=== PATIENT | female | born 1940 | race Caucasian/White ===

== ENCOUNTER 2016-08-11 14:01 | Emergency (ER) | payer OTHER ==
[~2016-08-11] VITALS: Ht 147.3 cm; Wt 54.5 kg
[~2016-08-11 14:01] MED LIST: ACET325T47 PO; ALBU8HFA IH; ASPI-1061 PO; CALC1TAB90 PO; CARV3 PO; CLOP75TA32 PO; DOCU100C98 PO; OMEP20 PO; SIMV-261 PO; VITAD5000 PO
[2016-08-11 15:32] LABS: BASOPHILS % (AUTO) 0.7 % (0.0-2.0); EOSINOPHILS % (AUTO) 2.8 % (1.0-6.0); HEMATOCRIT 31.8 % (36-46); HEMOGLOBIN 10.7 g/dL (12.0-16.0); LYMPHOCYTES # (AUTO) 1.7 K/uL (1.0-4.8); LYMPHOCYTES % (AUTO) 27.1 % (22.0-44.0); MEAN CORPUSCULAR HEMOGLOBIN 32.8 pg (26.0-34.0); MEAN CORPUSCULAR HGB CONC 33.7 G/dL (31.0-37.0); MEAN CORPUSCULAR VOLUME 97 fL (80-100); MONOCYTES # (AUTO) 0.6 K/uL (0.1-1.0); MONOCYTES % (AUTO) 9.1 % (2.0-9.0); NEUTROPHILS # (AUTO) 3.8 K/uL (1.8-7.7); NEUTROPHILS % (AUTO) 60.3 % (40.0-70.0); PLATELET COUNT (AUTO) 184 K/uL (150-450); RED BLOOD CELL COUNT(AUTO) 3.27 MIL/uL (4.00-5.20); RED CELL DISTRIBUTION WIDTH 14.3 % (11.5-14.5); WHITE BLOOD COUNT (AUTO) 6.3 K/uL (4.5-11.0)
[2016-08-11 15:45] LABS: ANION GAP 6 mmol/L (8-16); CALCIUM, TOTAL 8.9 mg/dL (8.8-10.5); CARBON DIOXIDE 27 mmol/L (22-29); CHLORIDE 104 mmol/L (98-107); GLOMERULAR FILTR. RATE CALC > 60 mL/min (>60); POTASSIUM 3.9 mmol/L (3.5-5.1); SODIUM SERUM 137 mmol/L (136-145); UREA NITROGEN, BLOOD 18 mg/dL (7-18)
[2016-08-11 15:48] LABS: ALANINE AMINOTRANSFERASE 43 U/L (12-78); ALBUMIN 3.3 g/dL (3.4-5.0); ASPARTATE AMINOTRANSFERASE 32 U/L (15-37); BILIRUBIN,TOTAL 0.4 mg/dL (0.1-1.0); TOTAL PROTEIN, SERUM 7.6 g/dL (6.4-8.2)
[2016-08-11 16:25] VITALS: BP 105/66
== END 2016-08-11 17:28 | disposition home or self-care (01) ==
LOC: EMS 14:02
DX: J40 Bronchitis, not specified as acute or chronic (principal); I11.0 Hypertensive heart disease with heart failure; I50.9 Heart failure, unspecified; E78.00 Pure hypercholesterolemia, unspecified; I25.10 Atherosclerotic heart disease of native coronary artery without angina pectoris; Z79.84 Long term (current) use of oral hypoglycemic drugs
CPT/HCPCS: 93005; 99285

== ENCOUNTER 2016-12-04 08:46 | Inpatient (IN) | payer OTHER ==
[~2016-12-04] VITALS: Ht 147.3 cm; Wt 54.3 kg
[2016-12-04] MEDS ORDERED: ATOR40TA28 PO (08:57)
[2016-12-04] MEDS ORDERED: GABA-529 PO (08:57)
[2016-12-04] MEDS ORDERED: FURO40 PO (08:57)
[2016-12-04] MEDS ORDERED: FERR-89 PO (08:57)
[2016-12-04] MEDS ORDERED: MULT1TAB59 PO (08:57)
[2016-12-04 09:48] LABS: BASOPHILS % (AUTO) 0.8 % (0.0-2.0); EOSINOPHILS % (AUTO) 2.9 % (1.0-6.0); HEMATOCRIT 36.4 % (36-46); HEMOGLOBIN 11.7 g/dL (12.0-16.0); LYMPHOCYTES # (AUTO) 1.4 K/uL (1.0-4.8); LYMPHOCYTES % (AUTO) 26.2 % (22.0-44.0); MEAN CORPUSCULAR HEMOGLOBIN 30.9 pg (26.0-34.0); MEAN CORPUSCULAR HGB CONC 32.1 G/dL (31.0-37.0); MEAN CORPUSCULAR VOLUME 96 fL (80-100); MONOCYTES # (AUTO) 0.4 K/uL (0.1-1.0); MONOCYTES % (AUTO) 7.6 % (2.0-9.0); NEUTROPHILS # (AUTO) 3.4 K/uL (1.8-7.7); NEUTROPHILS % (AUTO) 62.5 % (40.0-70.0); PLATELET COUNT (AUTO) 159 K/uL (150-450); RED BLOOD CELL COUNT(AUTO) 3.78 MIL/uL (4.00-5.20); RED CELL DISTRIBUTION WIDTH 16.4 % (11.5-14.5); WHITE BLOOD COUNT (AUTO) 5.5 K/uL (4.5-11.0)
[2016-12-04 09:57] LABS: ANION GAP 11 mmol/L (8-16); CALCIUM, TOTAL 8.6 mg/dL (8.8-10.5); CARBON DIOXIDE 24 mmol/L (22-29); CHLORIDE 103 mmol/L (98-107); GLOMERULAR FILTR. RATE CALC > 60 mL/min (>60); INR 1.1 (0.9-1.1); POTASSIUM 3.2 mmol/L (3.5-5.1); PROTHROMBIN TIME 11.3 SEC (9.4-11.6); SODIUM SERUM 138 mmol/L (136-145); UREA NITROGEN, BLOOD 12 mg/dL (7-18)
[2016-12-04 10:02] LABS: APPEARANCE,URINE CLEAR (CLEAR); GLUCOSE, URINE (UA) NEGATIVE (NEGATIVE); KETONES,URINE NEGATIVE (NEGATIVE); LEUKOCYTE ESTERASE ,URINE SMALL (NEGATIVE); OCCULT BLOOD,URINE NEGATIVE (NEGATIVE); PROTEIN,URINE NEGATIVE (NEGATIVE)
[2016-12-04 10:06] LABS: B-TYPE NATRIURETIC PEPTIDE 2030 pg/mL (0-100)
[2016-12-04 10:15] LABS: ADD UA MICROSCOPIC YES; RBC,URINE 0-2 /HPF (0-2); SQUAMOUS EPITHELIAL CELL,UR Few /LPF (None Seen)
[2016-12-04 10:38] LABS: ALANINE AMINOTRANSFERASE 47 U/L (12-78); ALBUMIN 3.3 g/dL (3.4-5.0); ASPARTATE AMINOTRANSFERASE 27 U/L (15-37); BILIRUBIN,TOTAL 0.8 mg/dL (0.1-1.0); CREATINE KINASE MB 1.2 ng/mL (0-5); CREATINE KINASE, TOTAL 110 U/L (26-192); TOTAL PROTEIN, SERUM 7.3 g/dL (6.4-8.2)
[2016-12-04] MEDS ORDERED: NITROGLYCERIN 2% (1 GM=INCH) PACKET TP ONE (12:00)
[2016-12-04] MEDS: FUROSEMIDE 40 MG/4 ML VIAL IVP ONE ×2 (12:01→12:31)
[2016-12-04] MEDS ORDERED: MAGNESIUM HYDROXIDE SUSPENSION 30 ML UDCUP PO PRN (12:45)
[2016-12-04] MEDS ORDERED: ALBUTEROL SULFATE 2.5 MG/0.5 ML NEB SOLUTION NEB PRN (12:45)
[2016-12-04] MEDS ORDERED: BISACODYL 10 MG RECTAL RECTAL SUPPOSITORY PR PRN (12:45)
[2016-12-04] MEDS ORDERED: ACETAMINOPHEN 325 MG TABLET PO PRN (12:45)
[2016-12-04] MEDS: ASPIRIN 81 MG CHEWABLE TABLET PO SCH (12:52)
[2016-12-04] MEDS ORDERED: POTASSIUM CHL 10 MEQ/WATER 50 ML IV PRN (13:00)
[2016-12-04] MEDS: CLOPIDOGREL BISULFATE 75 MG TABLET PO SCH (13:42)
[2016-12-04 15:37] VITALS: BP 104/74
[2016-12-04] MEDS: POTASSIUM CHLORIDE 20 MEQ ER TABLET PO PRN (18:48)
[2016-12-04 19:44] VITALS: BP 98/64
[2016-12-04] MEDS: ATORVASTATIN CALCIUM 20 MG TABLET PO SCH (20:37)
[2016-12-04] MEDS: DOCUSATE SODIUM 100 MG CAPSULE PO SCH (20:37)
[2016-12-04] MEDS: HEPARIN SODIUM,PORCINE 5,000 UNITS/ML VIAL SQ SCH (20:38)
[2016-12-04] MEDS ORDERED: FUROSEMIDE 40 MG/4 ML VIAL IVP SCH (21:00)
[2016-12-04 23:41] VITALS: BP 94/63
[2016-12-05 04:16] VITALS: BP 96/62
[2016-12-05 07:10] VITALS: BP 90/53
[2016-12-05] MEDS: CLOPIDOGREL BISULFATE 75 MG TABLET PO SCH (08:05)
[2016-12-05] MEDS: ASPIRIN 81 MG CHEWABLE TABLET PO SCH (08:05)
[2016-12-05] MEDS: PANTOPRAZOLE SODIUM 40 MG DR TABLET PO SCH (08:05)
[2016-12-05] MEDS: DOCUSATE SODIUM 100 MG CAPSULE PO SCH ×2 (08:05→20:00)
[2016-12-05] MEDS: HEPARIN SODIUM,PORCINE 5,000 UNITS/ML VIAL SQ SCH ×2 (08:06→20:00)
[2016-12-05] MEDS ORDERED: PANTOPRAZOLE SODIUM 40 MG/VIAL IVP SCH (09:00)
[2016-12-05 11:07] VITALS: BP 93/65
[2016-12-05] MEDS ORDERED: IPRATROPIUM BROMIDE 0.5 MG/2.5 ML NEB SOLUTION NEB PRN (14:15)
[2016-12-05] MEDS ORDERED: ALBUTEROL SULFATE 2.5 MG/0.5 ML NEB SOLUTION NEB PRN (14:15)
[2016-12-05 15:27] VITALS: BP 107/74
[2016-12-05] MEDS: SACUBITRIL/VALSARTAN 24-26 MG TABLET PO SCH ×2 (18:08→20:00)
[2016-12-05] MEDS: ATORVASTATIN CALCIUM 20 MG TABLET PO SCH (20:00)
[2016-12-05 20:08] VITALS: BP 94/58
[2016-12-05 23:48] VITALS: BP 102/62
[2016-12-06] VITALS (7 sets, daily range): BP systolic 90–102; BP diastolic 53–63
[2016-12-06 06:47] LABS: BASOPHILS % (AUTO) 0.8 % (0.0-2.0); EOSINOPHILS % (AUTO) 4.3 % (1.0-6.0); HEMATOCRIT 36.3 % (36-46); HEMOGLOBIN 11.8 g/dL (12.0-16.0); LYMPHOCYTES # (AUTO) 1.6 K/uL (1.0-4.8); LYMPHOCYTES % (AUTO) 30.4 % (22.0-44.0); MEAN CORPUSCULAR HEMOGLOBIN 31.4 pg (26.0-34.0); MEAN CORPUSCULAR HGB CONC 32.4 G/dL (31.0-37.0); MEAN CORPUSCULAR VOLUME 97 fL (80-100); MONOCYTES # (AUTO) 0.4 K/uL (0.1-1.0); NEUTROPHILS % (AUTO) 56.5 % (40.0-70.0); PLATELET COUNT (AUTO) 158 K/uL (150-450); RED BLOOD CELL COUNT(AUTO) 3.74 MIL/uL (4.00-5.20); RED CELL DISTRIBUTION WIDTH 15.8 % (11.5-14.5); WHITE BLOOD COUNT (AUTO) 5.3 K/uL (4.5-11.0)
[2016-12-06 07:23] LABS: ALANINE AMINOTRANSFERASE 34 U/L (12-78); ALBUMIN 2.8 g/dL (3.4-5.0); ANION GAP 6 mmol/L (8-16); ASPARTATE AMINOTRANSFERASE 24 U/L (15-37); BILIRUBIN,TOTAL 0.9 mg/dL (0.1-1.0); CALCIUM, TOTAL 8.4 mg/dL (8.8-10.5); CARBON DIOXIDE 26 mmol/L (22-29); CHLORIDE 105 mmol/L (98-107); CREATININE 0.64 mg/dL (0.60-1.30); GLOMERULAR FILTR. RATE CALC > 60 mL/min (>60); POTASSIUM 3.4 mmol/L (3.5-5.1); SODIUM SERUM 137 mmol/L (136-145); TOTAL PROTEIN, SERUM 6.3 g/dL (6.4-8.2); UREA NITROGEN, BLOOD 15 mg/dL (7-18)
[2016-12-06] MEDS: ASPIRIN 81 MG CHEWABLE TABLET PO SCH (09:00)
[2016-12-06] MEDS: DOCUSATE SODIUM 100 MG CAPSULE PO SCH ×2 (09:00→20:32)
[2016-12-06] MEDS: HEPARIN SODIUM,PORCINE 5,000 UNITS/ML VIAL SQ SCH ×2 (09:00→20:32)
[2016-12-06] MEDS: PANTOPRAZOLE SODIUM 40 MG DR TABLET PO SCH (09:00)
[2016-12-06] MEDS: CLOPIDOGREL BISULFATE 75 MG TABLET PO SCH (09:00)
[2016-12-06] MEDS: SACUBITRIL/VALSARTAN 24-26 MG TABLET PO SCH ×2 (09:00→21:00)
[2016-12-06] MEDS: FUROSEMIDE 40 MG/4 ML VIAL IVP SCH (12:00)
[2016-12-06] MEDS: POTASSIUM CHLORIDE 20 MEQ ER TABLET PO PRN (12:55)
[2016-12-06] MEDS: ATORVASTATIN CALCIUM 20 MG TABLET PO SCH (20:32)
[2016-12-07 05:07] VITALS: BP 96/61
[2016-12-07 06:39] LABS: BASOPHILS % (AUTO) 0.6 % (0.0-2.0); EOSINOPHILS % (AUTO) 4.3 % (1.0-6.0); HEMATOCRIT 35.3 % (36-46); HEMOGLOBIN 11.3 g/dL (12.0-16.0); LYMPHOCYTES # (AUTO) 1.8 K/uL (1.0-4.8); LYMPHOCYTES % (AUTO) 31.5 % (22.0-44.0); MEAN CORPUSCULAR HEMOGLOBIN 31.4 pg (26.0-34.0); MEAN CORPUSCULAR VOLUME 98 fL (80-100); MONOCYTES # (AUTO) 0.5 K/uL (0.1-1.0); MONOCYTES % (AUTO) 7.8 % (2.0-9.0); NEUTROPHILS # (AUTO) 3.3 K/uL (1.8-7.7); NEUTROPHILS % (AUTO) 55.8 % (40.0-70.0); PLATELET COUNT (AUTO) 149 K/uL (150-450); RED BLOOD CELL COUNT(AUTO) 3.59 MIL/uL (4.00-5.20); WHITE BLOOD COUNT (AUTO) 5.8 K/uL (4.5-11.0)
[2016-12-07 07:13] LABS: ANION GAP 6 mmol/L (8-16); CALCIUM, TOTAL 8.7 mg/dL (8.8-10.5); CARBON DIOXIDE 25 mmol/L (22-29); CHLORIDE 107 mmol/L (98-107); CREATININE 0.73 mg/dL (0.60-1.30); GLOMERULAR FILTR. RATE CALC > 60 mL/min (>60); POTASSIUM 4.3 mmol/L (3.5-5.1); SODIUM SERUM 138 mmol/L (136-145); UREA NITROGEN, BLOOD 19 mg/dL (7-18)
[2016-12-07 08:05] VITALS: BP 93/62
[2016-12-07 08:47] VITALS: BP 98/53
[2016-12-07] MEDS: ASPIRIN 81 MG CHEWABLE TABLET PO SCH (09:03)
[2016-12-07] MEDS: FUROSEMIDE 40 MG/4 ML VIAL IVP SCH (09:03)
[2016-12-07] MEDS: DOCUSATE SODIUM 100 MG CAPSULE PO SCH (09:04)
[2016-12-07] MEDS: SACUBITRIL/VALSARTAN 24-26 MG TABLET PO SCH (09:04)
[2016-12-07] MEDS: PANTOPRAZOLE SODIUM 40 MG DR TABLET PO SCH (09:04)
[2016-12-07] MEDS: CLOPIDOGREL BISULFATE 75 MG TABLET PO SCH (09:04)
[2016-12-07] MEDS: HEPARIN SODIUM,PORCINE 5,000 UNITS/ML VIAL SQ SCH (09:04)
[2016-12-07] MEDS ORDERED: FURO40 PO (11:26)
[2016-12-07] MEDS ORDERED: SACU1TAB PO (11:28)
[2016-12-07 11:53] VITALS: BP 90/47
== END 2016-12-07 16:57 | disposition home or self-care (01) | DRG 293 ==
LOC: EMS 08:49 → 5N 13:35
PROVIDERS: ADMIT Internal Medicine; ATTEND Internal Medicine
DX: I11.0 Hypertensive heart disease with heart failure (principal); I50.43 Acute on chronic combined systolic (congestive) and diastolic (congestive) heart failure; I25.10 Atherosclerotic heart disease of native coronary artery without angina pectoris; I08.1 Rheumatic disorders of both mitral and tricuspid valves; I25.5 Ischemic cardiomyopathy; E78.5 Hyperlipidemia, unspecified; E87.6 Hypokalemia; E11.9 Type 2 diabetes mellitus without complications; I25.2 Old myocardial infarction; Z79.82 Long term (current) use of aspirin; Z95.810 Presence of automatic (implantable) cardiac defibrillator; Z95.818 Presence of other cardiac implants and grafts; Z95.5 Presence of coronary angioplasty implant and graft; Z79.899 Other long term (current) drug therapy; Z79.01 Long term (current) use of anticoagulants
CPT/HCPCS: 83735; 84132; 93005; 93306; 96374; 99285; J1644; J1940

== ENCOUNTER 2017-06-07 00:51 | Emergency (ER) | payer OTHER ==
[~2017-06-07] VITALS: Ht 152.4 cm; Wt 59.1 kg
[~2017-06-07 00:51] MED LIST changes: -ASPI-1061 PO; +ASPI81TA33 PO; +ATOR40TA28 PO; -CARV3 PO; +FURO40 PO; +MULT1TAB59 PO; +SACU1TAB PO; -SIMV-261 PO
[2017-06-07] MEDS ORDERED: CARV3 PO (01:27)
[2017-06-07] MEDS ORDERED: GABA-529 PO (01:27)
[2017-06-07] MEDS ORDERED: SULF1TAB42 PO (01:27)
[2017-06-07 02:09] LABS: BASOPHILS # (AUTO) 0.03 K/uL (0.00-0.20); BASOPHILS % (AUTO) 0.6 % (0.0-2.0); EOSINOPHILS # (AUTO) 0.16 K/uL (0.00-0.70); EOSINOPHILS % (AUTO) 3.45 % (1.0-6.0); HEMATOCRIT 33.5 % (36-46); HEMOGLOBIN 11.5 g/dL (12.0-16.0); LYMPHOCYTES # (AUTO) 0.6 K/uL (1.0-4.8); LYMPHOCYTES % (AUTO) 12.6 % (22.0-44.0); MEAN CORPUSCULAR HEMOGLOBIN 34.8 pg (26.0-34.0); MEAN CORPUSCULAR HGB CONC 34.2 G/dL (31.0-37.0); MEAN CORPUSCULAR VOLUME 102 fL (80-100); MONOCYTES # (AUTO) 0.5 K/uL (0.1-1.0); MONOCYTES % (AUTO) 9.9 % (2.0-9.0); NEUTROPHILS # (AUTO) 3.4 K/uL (1.8-7.7); NEUTROPHILS % (AUTO) 73.5 % (40.0-70.0); PLATELET COUNT (AUTO) 135 K/uL (150-450); RED CELL DISTRIBUTION WIDTH 13.4 % (11.5-14.5); WHITE BLOOD COUNT (AUTO) 4.6 K/uL (4.5-11.0)
[2017-06-07 02:16] LABS: ANION GAP 8 mmol/L (8-16); CALCIUM, TOTAL 8.8 mg/dL (8.8-10.5); CARBON DIOXIDE 27 mmol/L (22-29); CHLORIDE 100 mmol/L (98-107); CREATININE 1.01 mg/dL (0.60-1.30); GLOMERULAR FILTR. RATE CALC 53 mL/min (>60); POTASSIUM 4.1 mmol/L (3.5-5.1); SODIUM SERUM 135 mmol/L (136-145); UREA NITROGEN, BLOOD 19 mg/dL (7-18)
[2017-06-07 02:22] LABS: ALANINE AMINOTRANSFERASE 32 U/L (12-78); ALBUMIN 3.6 g/dL (3.4-5.0); ASPARTATE AMINOTRANSFERASE 29 U/L (15-37); BILIRUBIN,TOTAL 0.3 mg/dL (0.1-1.0); CREATINE KINASE, TOTAL 75 U/L (26-192); TOTAL PROTEIN, SERUM 7.5 g/dL (6.4-8.2)
[2017-06-07 02:43] LABS: CREATINE KINASE MB < 0.5 ng/mL (0-5)
[2017-06-07 02:47] LABS: B-TYPE NATRIURETIC PEPTIDE 626 pg/mL (0-100)
[2017-06-07] MEDS ORDERED: KETOROLAC TROMETHAMINE 30 MG/ML VIAL IVP ONE (03:45)
[2017-06-07 03:53] LABS: APPEARANCE,URINE CLEAR (CLEAR); GLUCOSE, URINE (UA) NEGATIVE (NEGATIVE); KETONES,URINE NEGATIVE (NEGATIVE); LEUKOCYTE ESTERASE ,URINE NEGATIVE (NEGATIVE); OCCULT BLOOD,URINE NEGATIVE (NEGATIVE); PROTEIN,URINE NEGATIVE (NEGATIVE)
[2017-06-07 03:57] LABS: ADD UA MICROSCOPIC NO
[2017-06-07 04:12] VITALS: BP 108/84
== END 2017-06-07 04:45 | disposition home or self-care (01) ==
LOC: EMS 00:52
DX: M79.604 Pain in right leg (principal); R07.9 Chest pain, unspecified; I25.10 Atherosclerotic heart disease of native coronary artery without angina pectoris; I11.0 Hypertensive heart disease with heart failure; I50.9 Heart failure, unspecified; E78.00 Pure hypercholesterolemia, unspecified; Z95.0 Presence of cardiac pacemaker; Z79.82 Long term (current) use of aspirin
CPT/HCPCS: 36415; 71010; 80053; 81003; 82550; 82553; 83880; 84484; 85025; 85610; 85730; 93005; 96374; 99285; J1885

== ENCOUNTER 2019-02-05 23:32 | Emergency (ER) | payer OTHER ==
[~2019-02-05] VITALS: Ht 149.9 cm; Wt 54.5 kg
[~2019-02-05 23:32] MED LIST changes: -ACET325T47 PO; -ALBU8HFA IH; -ASPI81TA33 PO; +ASPI81TA87 PO; -CALC1TAB90 PO; +CARV3 PO; +GABA-529 PO; -MULT1TAB59 PO; -OMEP20 PO; +SULF1TAB42 PO; -VITAD5000 PO
[2019-02-06 03:12] VITALS: BP 122/70
== END 2019-02-06 03:30 | disposition home or self-care (01) ==
LOC: EMS 23:33
DX: S52.502A Unspecified fracture of the lower end of left radius, initial encounter for closed fracture (principal); I25.10 Atherosclerotic heart disease of native coronary artery without angina pectoris; I11.0 Hypertensive heart disease with heart failure; I50.9 Heart failure, unspecified; E78.00 Pure hypercholesterolemia, unspecified; Z95.0 Presence of cardiac pacemaker; Z79.899 Other long term (current) drug therapy; Z79.82 Long term (current) use of aspirin; W19.XXXA Unspecified fall, initial encounter; Y93.89 Activity, other specified; Y92.89 Other specified places as the place of occurrence of the external cause; Y99.8 Other external cause status

== ENCOUNTER 2022-07-11 22:48 | Emergency (ER) | payer OTHER ==
[~2022-07-11] VITALS: Ht 152.4 cm; Wt 49.0 kg
[~2022-07-11 22:48] MED LIST changes: -CLOP75TA32 PO; +CLOP75TA60 PO; -DOCU100C98 PO; +GABA-1216 PO; -GABA-529 PO; +OMEP20 PO; -SULF1TAB42 PO
[2022-07-11] MEDS ORDERED: FAMOTIDINE 20 MG TABLET PO ONE (23:30)
[2022-07-11] MEDS ORDERED: MAG HYDROX/AL HYDROX/SIMETH 30 ML SUSP UDCUP PO ONE (23:30)
[2022-07-11] MEDS ORDERED: RINGERS SOLUTION,LACTATED 500 ML IV ONE ×2 (23:30→23:45)
[2022-07-12 00:21] LABS: APPEARANCE,URINE CLEAR (CLEAR); BILIRUBIN,URINE NEGATIVE (NEGATIVE); GLUCOSE, URINE (UA) NEGATIVE (NEGATIVE); KETONES,URINE NEGATIVE (NEGATIVE); LEUKOCYTE ESTERASE ,URINE TRACE (NEGATIVE); NITRATE,URINE NEGATIVE (NEGATIVE); OCCULT BLOOD,URINE NEGATIVE (NEGATIVE); PROTEIN,URINE NEGATIVE (NEGATIVE); SPECIFIC GRAVITIY, URINE 1.009 (1.003-1.030); UROBILINOGEN,URINE <=1.0 mg/dL (<=1.0)
[2022-07-12] MEDS ORDERED: SODIUM CHLORIDE 0.9% 100 ML ONE (00:35)
[2022-07-12] MEDS ORDERED: IOHEXOL 350 MG/ML 100 ML VIAL ONE (00:36)
[2022-07-12 00:45] LABS: BACTERIA,URINE None Seen /HPF (None Seen); RBC,URINE None Seen /HPF (0-2); SQUAMOUS EPITHELIAL CELL,UR None Seen /LPF (None Seen); WBC,URINE 0-2 /HPF (0-5)
[2022-07-12 00:53] LABS: BASOPHILS % (AUTO) 0.5 % (0.0-2.0); EOSINOPHILS % (AUTO) 1.7 % (1.0-6.0); HEMATOCRIT 28.9 % (36-46); HEMOGLOBIN 9.7 g/dL (12.0-16.0); LYMPHOCYTES # (AUTO) 0.8 K/uL (1.0-4.8); LYMPHOCYTES % (AUTO) 17.3 % (22.0-44.0); MEAN CORPUSCULAR HGB CONC 33.7 G/dL (31.0-37.0); MEAN CORPUSCULAR VOLUME 104 fL (80-100); MONOCYTES # (AUTO) 0.3 K/uL (0.1-1.0); MONOCYTES % (AUTO) 7.1 % (2.0-9.0); NEUTROPHILS # (AUTO) 3.4 K/uL (1.8-7.7); NEUTROPHILS % (AUTO) 73.4 % (40.0-70.0); PLATELET COUNT (AUTO) 147 K/uL (150-450); RED BLOOD CELL COUNT(AUTO) 2.78 MIL/uL (4.00-5.20)
[2022-07-12 01:03] LABS: ANION GAP 7 mmol/L (8-16); CALCIUM, TOTAL 8.7 mg/dL (8.8-10.5); CARBON DIOXIDE 27 mmol/L (22-29); CHLORIDE 104 mmol/L (98-107); CREATININE 0.87 mg/dL (0.60-1.30); GLUCOSE,RANDOM 129 mg/dL (70-110); POTASSIUM 3.4 mmol/L (3.5-5.1); SODIUM SERUM 138 mmol/L (136-145); UREA NITROGEN, BLOOD 18 mg/dL (7-18)
[2022-07-12 01:05] LABS: GLOMERULAR FILTR. RATE CALC > 60 mL/min (>60)
[2022-07-12 01:08] LABS: ALANINE AMINOTRANSFERASE 72 U/L (12-78); ALBUMIN 3.1 g/dL (3.4-5.0); ALKALINE PHOSPHATASE 169 U/L (46-116); ASPARTATE AMINOTRANSFERASE 46 U/L (15-37); BILIRUBIN,TOTAL 0.5 mg/dL (0.1-1.0); LIPASE 117 U/L (73-393); TOTAL PROTEIN, SERUM 6.2 g/dL (6.4-8.2)
[2022-07-12] MEDS ORDERED: FAMO20 PO (02:31)
[2022-07-12] MEDS ORDERED: MAG-55 PO (02:32)
[2022-07-12 02:52] VITALS: BP 106/58
== END 2022-07-12 02:56 | disposition home or self-care (01) ==
LOC: EMS 22:48
DX: K29.70 Gastritis, unspecified, without bleeding (principal); K21.9 Gastro-esophageal reflux disease without esophagitis; I11.0 Hypertensive heart disease with heart failure; I50.9 Heart failure, unspecified; I25.10 Atherosclerotic heart disease of native coronary artery without angina pectoris; E78.00 Pure hypercholesterolemia, unspecified
CPT/HCPCS: 99285; 71045; 80053; 81001; 83690; 83880; 84484; 85025; 36415; 93005; 74177; J7120 ×2; Q9967; J7050